=== PATIENT | female | born 1970 | race Caucasian/White ===

== ENCOUNTER 2019-04-18 23:33 | Emergency (ER) ==
--- NOTE | 2019-04-19 10:07 | EKG REPORT ---
SEVERITY:- ABNORMAL ECG - SINUS TACHYCARDIA PROBABLE INFERIOR INFARCT, AGE INDETERMINATE NONSPECIFIC ST-T CHANGES, DIFFUSE : Confirmed by: Omar Oakes MD 19-Apr-2019 10:07:13
== END 2019-04-19 03:07 | disposition left against medical advice (07) ==
LOC: ER 23:33
DX: Z53.21 Procedure and treatment not carried out due to patient leaving prior to being seen by health care provider (principal)
CPT/HCPCS: 93005; 93010

== ENCOUNTER 2019-06-28 22:42 | Emergency (ER) | payer SELFPAY ==
[2019-06-28 22:52] VITALS: BP 157/86
[2019-06-29] MEDS ORDERED: KETOROLAC TROMETHAMINE 60 MG/2 ML SDV IM ONE (00:50)
[2019-06-29] MEDS ORDERED: LIDOCAINE 5% (700 MG) TRANSDERMAL ADH..PATCH TP ONE (00:50)
--- NOTE | 2019-06-29 00:53 | ER Document Report ---
ED Extremity Problem, Upper - General Chief Complaint: Arm Pain Stated Complaint: RIGHT ARM NUMBNESS,FAST HEART RATE Time Seen by Provider: 06/29/19 00:50 Primary Care Provider: [facility] [Provider Group] - Follow up as needed [facility] [Provider Group] - Follow up as needed Notes: Patient is a 48-year-old female presents to the emergency department with a pins and needle sensation to her right upper extremity. 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 Patient states she also had some generalized neck pain and then is complaining of right trapezius pain. Patient's denying any trauma or injuries. States upon arrival to the emergency department she felt as though her heart was beating fast. Patient states she does suffer from anxiety and was concerned that she was having a stroke. Patient's heart rate was noted to be 96 upon arrival to the emergency room. Upon my assessment patient is denying a racing heart rate, denies chest pain, denies shortness of breath. Patient's denying any numbness in any extremity. She is denying any pain in her upper or lower back. TRAVEL OUTSIDE OF THE [place] IN LAST 30 DAYS: No - Related Data Allergies/Adverse Reactions: No Known Allergies Allergy (Verified 04/18/19 23:36) Past Medical History - General Information source: Patient - Social History Smoking Status: Unknown if Ever Smoked Family History: Reviewed & Not Pertinent Patient has suicidal ideation: No Patient has homicidal ideation: No Review of Systems - Review of Systems Constitutional: denies: Fever EENT: No symptoms reported Cardiovascular: No symptoms reported Respiratory: No symptoms reported Gastrointestinal: No symptoms reported Genitourinary: No symptoms reported Female Genitourinary: No symptoms reported Musculoskeletal: See HPI Skin: No symptoms reported Hematologic/Lymphatic: No symptoms reported Neurological/Psychological: No symptoms reported Physical Exam - Vital signs Vitals: Temp Pulse Resp BP Pulse Ox 97.8 F 96 16 157/86 H 95 06/28/19 22:50 06/28/19 22:50 06/28/19 22:50 06/28/19 22:50 06/28/19 22:50 - Notes Notes: GENERAL: Alert, interacts well. No acute distress. HEAD: Normocephalic, atraumatic. EYES: Pupils equal, round, and reactive to light. Extraocular movements intact. ENT: Oral mucosa moist, tongue midline. NECK: Full range of motion. Supple. Trachea midline. Generalized pain upon palpation right trapezius muscle. LUNGS: Clear to auscultation bilaterally, no wheezes, rales, or rhonchi. No respiratory distress. HEART: Regular rate and rhythm. No murmur ABDOMEN: Soft, non-tender. Non-distended. Bowel sounds present in all 4 quadrants. EXTREMITIES: Moves all 4 extremities spontaneously. No edema, normal radial and dorsalis pedis pulses bilaterally. No cyanosis. 5 out of 5 strength noted all 4 extremities. Full range of motion right shoulder, right elbow, right wrist. BACK: no cervical, thoracic, lumbar midline tenderness. No saddle anesthesia, normal distal neurovascular exam. NEUROLOGICAL: Alert and oriented x3. Normal speech. cranial nerves II through XII grossly intact PSYCH: Normal affect, normal mood. SKIN: Warm, dry, normal turgor. No rashes or lesions noted. Course - Re-evaluation Re-evalutation: 06/29/19 01:36 Patient has no midline spinal tenderness noted. Patient does have pain in the right trapezius muscle and states she has an intermittent [id number] feeling in her right upper extremity. 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 Have also discussed with her she should follow-up at [facility] for an MRI of her spine. Patient voices understanding and is in agreement with this plan. Patient stable for discharge. - Vital Signs Vital signs: Temp Pulse Resp BP Pulse Ox 97.8 F 96 16 157/86 H 95 06/28/19 22:50 06/28/19 22:50 06/28/19 22:50 06/28/19 22:50 06/28/19 22:50 Discharge - Discharge Clinical Impression: Right arm pain Strain of right trapezius muscle Qualifiers: Encounter type: initial encounter Qualified Code(s): S46.811A - Strain of other muscles, fascia and tendons at shoulder and upper arm level, right arm, initial encounter Condition: Stable Disposition: HOME, SELF-CARE Additional Instructions: As we discussed you have been seen and treated in the emergency department for your concern for numbness and tingling in your right arm. Patient your physical exam I feel as though this is muscular in nature. I also feel like he should follow-up with a primary care provider for potential MRI of your neck. Should you have any numbness or tingling in any extremity, loss of bowel or bladder or urinary retention please return to the emergency room. Otherwise you can fo llow-up with [facility], [facility]. Phone numbers will be provided in this packet. Prescriptions: Methocarbamol [Robaxin 750 mg Tablet] 1,500 mg PO QID 5 Days tablet Forms: Return to Work Referrals: [facility] [Provider Group] - Follow up as needed [facility] [Provider Group] - Follow up as needed
--- NOTE | 2019-06-30 00:48 | EKG REPORT ---
SEVERITY:- ABNORMAL ECG - SINUS RHYTHM PROBABLE LEFT ATRIAL ABNORMALITY BORDERLINE INFERIOR Q WAVES BORDERLINE R WAVE PROGRESSION, ANTERIOR LEADS MINIMAL ST DEPRESSION, LATERAL LEADS : Confirmed by: Chela Pillai 30-Jun-2019 00:48:22
== END 2019-06-29 00:58 | disposition home or self-care (01) ==
LOC: ER 22:42
DX: M79.601 Pain in right arm (principal); S29.012A Strain of muscle and tendon of back wall of thorax, initial encounter; X58.XXXA Exposure to other specified factors, initial encounter; M79.18 Myalgia, other site; M54.2 Cervicalgia; R20.2 Paresthesia of skin
CPT/HCPCS: 93005; 93010; J1885; 96372; 99283